=== PATIENT | female | born 1980 | race Two or more races ===

== ENCOUNTER 2020-10-01 20:37 | Emergency (ER) | payer SELFPAY ==
[~2020-10-01] VITALS: Ht 172.7 cm; Wt 70.0 kg
[2020-10-01] MEDS ORDERED: SODIUM CHLORIDE 0.9% 1,000 ML IV ONE (21:30)
[2020-10-01 22:44] LABS: BASOPHILS % 0.5 % (0.0-2.0); EOSINOPHILS % 0.3 % (0.0-5.0); HEMATOCRIT. 33.2 % (36.0-48.0); HEMOGLOBIN. 11.7 g/dL (12.0-16.0); LYMPHOCYTES % 13.9 % (20.0-50.0); MEAN CORPUSCULAR HEMOGLOBIN 30.9 pg (28.0-32.0); MEAN CORPUSCULAR VOLUME 87.8 fL (81.0-99.0); MONOCYTES % 10.4 % (2.0-8.0); NEUTROPHILS % 74.9 % (40.0-76.0); PLATELET 359 x1000/uL (130-400); RED BLOOD CELL COUNT 3.79 mill/uL (4.2-5.4); RED CELL DISTRIBUTION WIDTH 13.9 % (11.6-14.6)
[2020-10-01 22:45] LABS: CLARITY URINE CLEAR (CLEAR); COLOR URINE YELLOW (YELLOW); KETONES URINE TRACE (NEGATIVE); LEUKOCYTE ESTERASE URINE NEGATIVE (NEGATIVE); NITRITE URINE NEGATIVE (NEGATIVE); OCCULT BLOOD URINE 1+ (NEGATIVE); PROTEIN URINE 2+ (NEGATIVE); SPECIFIC GRAVITY URINE 1.021 (1.005-1.030); UROBILINOGEN URINE 0.2 E.U./dL (0.2-1.0)
[2020-10-01 22:50] LABS: CHLORIDE 109 mEq/L (98-107)
[2020-10-01 22:54] LABS: HCG SCREEN NEGATIVE
[2020-10-01 22:55] LABS: ETHANOL BLOOD < 10 mg/dL
[2020-10-01 22:59] LABS: *AMPHETAMINES SCREEN URINE NEGATIVE (NEGATIVE); *BARBITURATES SCREEN URINE NEGATIVE (NEGATIVE); *BENZODIAZEPINES SCREEN URINE NEGATIVE (NEGATIVE); *COCAINE SCREEN URINE NEGATIVE (NEGATIVE); METHADONE URINE SCREEN NEGATIVE (NEGATIVE); OPIATES URINE SCREEN NEGATIVE (NEGATIVE)
[2020-10-01 23:00] LABS: PHENCYCLIDINE URINE SCREEN NEGATIVE (NEGATIVE)
[2020-10-01 23:01] LABS: CANNABINOID URINE SCREEN PRESUMTIVE POSITIVE (NEGATIVE)
[2020-10-02 01:00] VITALS: BP 126/76
== END 2020-10-02 01:18 | disposition home or self-care (01) ==
LOC: ER 20:49
DX: G40.909 Epilepsy, unspecified, not intractable, without status epilepticus (principal); D64.9 Anemia, unspecified; E86.0 Dehydration; I49.8 Other specified cardiac arrhythmias; F17.210 Nicotine dependence, cigarettes, uncomplicated; Z71.6 Tobacco abuse counseling; F12.90 Cannabis use, unspecified, uncomplicated; Z71.51 Drug abuse counseling and surveillance of drug abuser
CPT/HCPCS: 36415; 71045; 80053; 80305; 80320; 81003; 81025; 84703; 85025; 93005; 96360; 99285; 99406; J7030; G0480

== ENCOUNTER 2020-11-29 15:29 | Emergency (ER) | payer OTHER ==
[~2020-11-29] VITALS: Ht 149.9 cm; Wt 48.0 kg
[2020-11-29 15:33] VITALS: BP 105/71
[2020-11-29] MEDS ORDERED: ACETAMINOPHEN 325MG TABLET PO ONE (20:00)
[2020-11-29] MEDS ORDERED: NAPR-679 MT (20:45)
== END 2020-11-29 20:54 | disposition home or self-care (01) ==
LOC: ER 15:29
DX: S93.402A Sprain of unspecified ligament of left ankle, initial encounter (principal); W23.1XXA Caught, crushed, jammed, or pinched between stationary objects, initial encounter; Y93.89 Activity, other specified; Y92.013 Bedroom of single-family (private) house as the place of occurrence of the external cause; G40.909 Epilepsy, unspecified, not intractable, without status epilepticus; Z86.73 Personal history of transient ischemic attack (TIA), and cerebral infarction without residual deficits; Z98.890 Other specified postprocedural states
CPT/HCPCS: 73590; 73610; 73630; 99284; Z7610

== ENCOUNTER 2021-11-11 10:46 | Emergency (ER) | payer OTHER ==
[~2021-11-11] VITALS: Ht 152.4 cm; Wt 53.0 kg
[~2021-11-11 10:46] MED LIST: NAPR-679 MT
[2021-11-11] MEDS ORDERED: CLIN-194 MT (11:11)
[2021-11-11] MEDS ORDERED: MUPI1OIN4 TP (11:11)
[2021-11-11 11:30] VITALS: BP 112/64
== END 2021-11-11 12:20 | disposition home or self-care (01) ==
LOC: ER 10:46
DX: R21 Rash and other nonspecific skin eruption (principal)
CPT/HCPCS: 99283

== ENCOUNTER 2022-04-11 14:58 | Emergency (ER) | payer OTHER ==
[~2022-04-11] VITALS: Ht 149.9 cm; Wt 52.0 kg
[~2022-04-11 14:58] MED LIST changes: +CLIN-194 MT; +MUPI1OIN4 TP
[2022-04-11 15:08] VITALS: BP 136/91
== END 2022-04-11 17:18 | disposition home or self-care (01) ==
LOC: ER 14:58
DX: M79.602 Pain in left arm (principal); F12.10 Cannabis abuse, uncomplicated; Z86.59 Personal history of other mental and behavioral disorders; Z86.73 Personal history of transient ischemic attack (TIA), and cerebral infarction without residual deficits
CPT/HCPCS: 99281